=== PATIENT | female | born 1970 | race Caucasian/White ===

== ENCOUNTER → 2019-06-04 | Outpatient (CLI) | payer MEDICARE ==
--- NOTE | 2019-06-05 14:33 | MM ---
Reason for exam: screening (asymptomatic). Last mammogram was performed 1 year and 11 months ago. History: Family history of breast cancer in paternal grandmother at age 60. Physical Findings: A clinical breast exam by your physician is recommended on an annual basis and results should be correlated with mammographic findings. MG 3D Screening Mammo W/Cad Bilateral CC and MLO view(s) were taken. Prior study comparison: July 05, 2017, bilateral MG 3d screening mammo w/cad. March 20, 2016, bilateral MG screening mammo w CAD. There are similar benign appearing round oval circumscribed masses. No suspicious abnormality. No significant changes when compared with prior studies. ASSESSMENT: Benign, BI-RAD 2 RECOMMENDATION: Routine screening mammogram of both breasts in 1 year.
== END | disposition home or self-care (01) ==
LOC: RADMAMWWP 10:27
PROVIDERS: ATTEND Internal Medicine
DX: Z12.31 Encounter for screening mammogram for malignant neoplasm of breast (principal)
CPT/HCPCS: 77063; 77067

== ENCOUNTER 2019-07-10 19:15 | Emergency (ER) | payer MEDICARE ==
--- NOTE | 2019-07-10 19:50 | ED ---
Extremity Problem HPI - General Chief complaint: Extremity Problem,Nontraumatic Stated complaint: Swelling in leg Time Seen by Provider: 07/10/19 19:29 Source: patient Mode of arrival: ambulatory Limitations: no limitations - History of Present Illness Initial comments: Patient is a 48-year-old female with history of DVT and CVAs presenting to the emergency department with a chief complaint of right leg swelling. Patient reports she woke up yesterday and noticed right lower extremity edema. She reports tightness whenever the leg is flexed but otherwise denies any pain. She reports some discomfort when walking. Patient denies erythema, discharge or other skin discoloration. She denies any trauma to the region. Patient denies hemoptysis, shortness of breath, chest pain, nausea, vomiting, prolonged periods for inactivity, exogenous steroid use, current chemotherapy treatment. Patient does have a history of DVT and states that she has an "mesh" in the right lower extremities. - Related Data Allergies Allergy/AdvReac Type Severity Reaction Status Date / Time warfarin [From Coumadin] Allergy Hallucinati Verified 07/10/19 19:27 ons Review of Systems ROS Statement: Those systems with pertinent positive or pertinent negative responses have been documented in the HPI. ROS Other: All systems not noted in ROS Statement are negative. Past Medical History Past Medical History: CVA/TIA History of Any Multi-Drug Resistant Organisms: None Reported Additional Past Surgical History / Comment(s): Patient states mesh was put into her right leg. Past Psychological History: No Psychological Hx Reported Smoking Status: Current every day smoker Past Alcohol Use History: Rare Past Drug Use History: None Reported General Exam Limitations: no limitations General appearance: alert, in no apparent distress Head exam: Present: atraumatic, normocephalic Eye exam: Present: normal appearance Pupils: Present: normal accommodation ENT exam: Present: normal exam, mucous membranes moist Neck exam: Present: normal inspection, full ROM Respiratory exam: Present: normal lung sounds bilaterally Cardiovascular Exam: Present: regular rate, normal rhythm, normal heart sounds Extremities exam: Present: normal inspection (Right lower extremity nonpitting edema), full ROM, normal capillary refill, other (+2 dorsalis pedis and posterior tibialis bilaterally. Patient neurovascularly intact the right lower extremity). Absent: tenderness, calf tenderness (Negative Homans bilaterally) Back exam: Present: normal inspection, full ROM Neurological exam: Present: alert, oriented X3, normal gait Psychiatric exam: Present: normal affect, normal mood Skin exam: Present: warm, dry, intact, normal color Course Vital Signs 07/10/19 07/10/19 19:23 21:48 Temperature 98.3 F 98.2 F Pulse Rate 94 91 Respiratory 20 18 Rate Blood Pressure 125/79 130/82 O2 Sat by Pulse 100 98 Oximetry Medical Decision Making - Medical Decision Making Patient is a 48-year-old female with history of DVT and CVA is presenting to emergency Department with chief complaint of right leg swelling. Exam shows right lower extremity nonpitting edema with full range of motion and only tightness with full flexion. Patient of neurovascularly intact. +2 dorsalis pedis and posterior tibialis bilaterally. Right lower extremity ultrasound is indicative of a superficial venous thrombus of the greater saphenous vein. Patient advised to apply warm compress. Considering patient has SVT, d-dimer most likely elevated and of no use. Patient was to follow-up with primary care. Strict return parameters were thoroughly discussed with patient was understanding and agreeable. Case discussed with physician. Disposition Clinical Impression: Acute superficial venous thrombosis of right lower extremity Disposition: HOME SELF-CARE Condition: Stable Instructions (If sedation given, give patient instructions): Superficial Thrombophlebitis (ED) Additional Instructions: Apply warm compress. Please follow with primary care. Please return to em ergency department if symptoms worsen. Is patient prescribed a controlled substance at d/c from ED?: No Referrals: Mitch Giang MD [Primary Care Provider] - 1-2 days Time of Disposition: 21:39
--- NOTE | 2019-07-10 21:06 | US ---
EXAMINATION TYPE: US venous doppler duplex LE RT DATE OF EXAM: 07/10/2019 8:34 PM COMPARISON: NONE CLINICAL HISTORY: swelling, hx of dvt. SIDE PERFORMED: Right TECHNIQUE: The lower extremity deep venous system is examined utilizing real time linear array sonog courtney with graded compression, doppler sonography and color-flow sonography. VESSELS IMAGED: External Iliac Vein (EIV) Common Femoral Vein Deep Femoral Vein Greater Saphenous Vein * Femoral Vein Popliteal Vein Small Saphenous Vein * Proximal Calf Veins (* superficial vessels) Right Leg: Negative for DVT At the GSV/CFV junction there is clot in the GSV. IMPRESSION: No evidence of deep venous thrombosis in the right leg. There is however some superficial vein thrombosis in the long saphenous vein.
[2019-07-10 21:49] VITALS: BP 130/82; PULSE 91; RESP 18; TEMP 98.2
== END 2019-07-10 21:48 | disposition home or self-care (01) ==
LOC: EC 19:15
DX: I82.811 Embolism and thrombosis of superficial veins of right lower extremity (principal); I47.1 Supraventricular tachycardia; F17.200 Nicotine dependence, unspecified, uncomplicated; Z88.8 Allergy status to other drugs, medicaments and biological substances; Z92.21 Personal history of antineoplastic chemotherapy; Z86.718 Personal history of other venous thrombosis and embolism; Z95.828 Presence of other vascular implants and grafts
CPT/HCPCS: 99283

== ENCOUNTER → 2021-06-28 | Outpatient (CLI) | payer MEDICARE, OTHER ==
--- NOTE | 2021-07-03 11:35 | MM ---
Reason for exam: screening (asymptomatic). Last mammogram was performed 2 years and 1 month ago. History: Family history of breast cancer in paternal grandmother at age 60. Physical Findings: A clinical breast exam by your physician is recommended on an annual basis and results should be correlated with mammographic findings. MG 3D Screening Mammo W/Cad Bilateral CC and MLO view(s) were taken. Prior study comparison: June 04, 2019, bilateral MG 3d screening mammo w/cad. July 05, 2017, bilateral MG 3d screening mammo w/cad. There are scattered fibroglandular densities. There is chronic nodularity in the right breast. There is no discrete abnormality. ASSESSMENT: Benign, BI-RAD 2 RECOMMENDATION: Routine screening mammogram of both breasts in 1 year.
== END | disposition home or self-care (01) ==
LOC: RADMAMWWP 14:08
PROVIDERS: ATTEND Internal Medicine
DX: Z12.31 Encounter for screening mammogram for malignant neoplasm of breast (principal)
CPT/HCPCS: 77063; 77067

== ENCOUNTER → 2022-05-15 | Outpatient (CLI) | payer MEDICARE, OTHER ==
--- NOTE | 2022-05-16 09:03 | XR ---
EXAMINATION TYPE: XR knee complete LT DATE OF EXAM: 05/15/2022 COMPARISON: None HISTORY: 51-year-old female M2 5.562, left knee pain TECHNIQUE: AP, oblique, and lateral views FINDINGS: There may be a trace knee joint effusion which is nonspecific. Extensor mechanism appears intact. No acute fracture, subluxation, or dislocation is seen. IMPRESSION: No acute osseous abnormality seen. There may be a trace knee joint effusion.
== END | disposition home or self-care (01) ==
LOC: RADXRMAIN 15:12
PROVIDERS: ATTEND Internal Medicine
DX: M25.562 Pain in left knee (principal)

== ENCOUNTER → 2022-08-28 | Outpatient (CLI) | payer MEDICARE, OTHER ==
--- NOTE | 2022-08-29 19:13 | MM ---
Reason for Exam: Screening (asymptomatic). Last mammogram was performed 1 year(s) and 2 month(s) ago. Patient History: Menarche at age 11. First Full-Term at age 19. Postmenopausal. Paternal grandmother had breast cancer, age 60. Risk Values: Dorothea 5 year model risk: 0.9%. NCI Lifetime model risk: 7.8%. Prior Study Comparison: 07/05/2017 Bilateral Screening Mammogram, [facility]. 06/04/2019 Bilateral Screening Mammogram, [facility]. 06/28/2021 Bilateral Screening Mammogram, [facility]. Tissue Density: There are scattered fibroglandular densities. Findings: Analyzed By CAD. Pattern is symmetrical and stable. No significant interval change is evident. No suspicious groups of microcalcifications, spiculated or lobular masses, architectural distortion or other secondary signs of malignancy are mammographically apparent. Overall Assessment: Negative, BI-RAD 1 Management: Screening Mammogram of both breasts in 1 year. A negative mammogram report should not preclude additional follow up of suspicious palpable abnormalities. Patient should continue monthly self breast exam. A clinical breast exam by your physician is recommended on an annual basis and results should be correlated with mammographic findings. Electronically signed and approved by: Abdelrahman Garcia D.O. Radiologis
== END | disposition home or self-care (01) ==
LOC: RADMAMWWP 14:36
PROVIDERS: ATTEND Internal Medicine
DX: Z12.31 Encounter for screening mammogram for malignant neoplasm of breast (principal); Z78.0 Asymptomatic menopausal state; Z80.3 Family history of malignant neoplasm of breast
CPT/HCPCS: 77063; 77067

== ENCOUNTER → 2023-10-31 | Day surgery (SDC) | payer MEDICARE, OTHER ==
[2023-10-28 10:56] VITALS: BMI 33.6
--- NOTE | 2023-10-30 23:41 | HP ---
HISTORY AND PHYSICAL DATE OF SURGERY: 10/31/2023. HISTORY OF PRESENT ILLNESS: Shabnam Coelho is a 52-year-old patient, seen with progressive left shoulder pain. We discussed options. She elected to proceed with left shoulder arthroscopy. Consent was obtained. PAST MEDICAL HISTORY: Hypertension. SURGICAL HISTORY: section. DAILY MEDICATIONS: 1. Metoprolol. 2. Tylenol. ALLERGIES: None. SOCIAL HISTORY: She smokes cigarettes. PHYSICAL EVALUATION OF THE LEFT SHOULDER: Flexion is 70 degrees. Abduction is 30 degrees. External rotation is 40 degrees with significant weakness. She has tenderness along the anterolateral acromion and rotator cuff insertion area. Impingement is positive at 60 degrees. Cross-body adduction sign is positive. Drop-arm sign is positive. Distal neurovascular exam is intact. IMAGING STUDIES: Radiographs of the left shoulder revealed a healed tuberosity fracture. Left shoulder MRI revealed a rotator cuff tendon tear along with labral tear. IMPRESSION: 1. Left shoulder impingement with rotator cuff tear. 2. Left shoulder labral tear. 3. Hypertension. PLAN: Left shoulder arthroscopy with subacromial decompression, arthroscopic rotator cuff repair, and debridement of labral tear. MMODL / IJN: [id number] /
[~2023-10-31] MED LIST: DEXAMETHASONE SOD PHOSPHATE 4 MG/ML 1 ML VIAL ONE; GLYCOPYRROLATE 0.2 MG/ML 2 ML VIAL ONE; HYDROmorphone 0.5 MG/0.5 ML SYRINGE IVP PRN; KETOROLAC 15 MG/ML 1 ML VIAL ONE; LIDOCAINE 1% INJ 10MG/ML (20 ML MDV) ONE; NEOSTIGMINE 1 MG/ML 10 ML VIAL ONE; PROPOFOL 10 MG/ML 20 ML VIAL IV ONE; ROCURONIUM 10 MG/ML (5 ML VIAL) IV ONE; ROPIVACAINE 5 MG/ML 30 ML VIAL ONE; SUCCINYLCHOLINE CHLORIDE 200 MG/10 ML VIAL IV ONE; fentaNYL (PF) 50 MCG/ML 2 ML AMP ONE
[2023-10-31 10:34] VITALS: RESP 16
[2023-10-31] MEDS: ONDANSETRON 4 MG/2 ML VIAL IVP ONE (10:46)
[2023-10-31] MEDS: DEXAMETHASONE SOD PHOSPHATE 4 MG/ML 1 ML VIAL IV ONE (10:46)
[2023-10-31] MEDS: LACTATED RINGERS 1,000 ML IV SCH (10:46)
[2023-10-31] MEDS: MIDAZOLAM 2 MG/2 ML VIAL IVP ONE (10:50)
--- NOTE | 2023-10-31 12:28 | P.OP ---
Date of Procedure: 10/31/23 Preoperative Diagnosis: Left shoulder impingement Postoperative Diagnosis: 1. Left shoulder rotator cuff tear 2. Left shoulder bicipital tendinitis 3. Left shoulder impingement 4. Left shoulder acromioclavicular joint osteoarthritis 5. Left shoulder superficial anterior labral tear Procedure(s) Performed: 1. Left shoulder arthroscopic rotator cuff repair 2. Left shoulder arthroscopic biceps tenodesis 3. Left shoulder arthroscopic subacromial decompression 4. Left shoulder arthroscopic Fredy procedure 5. Left shoulder arthroscopic debridement labral tear Implants: 2Arthrex 4.75 swivel lock anchors Anesthesia: GETA, regional (Interscalene block) Surgeon: Caio Schwartz Seed Expert #1: Kirt Stark Estimated Blood Loss (ml): 11 Pathology: none sent Condition: stable Disposition: PACU Indications for Procedure: 52-year-old patient seen with progressive left shoulder pain. After having treatment options discussed, she elected to proceed with arthroscopy. Operative Findings: See description of procedure Description of Procedure: Patient underwent an interscalene block by department of anesthesia. The patient was then taken to the operative suite. The patient underwent a general anesthetic by the department of anesthesia. The patient was placed into a lateral position and secured. There was appropriate padding of the bony prominence. Left shoulder was then prepped and draped in normal sterile orthopedic fashion. We placed the extremity in 10 pounds of longitudinal traction. A posterior incision was now made for a posterior working portal site. The trocar and cannula were inserted into the glenohumeral joint. Arthroscopy was initiated. Spinal needle was now inserted anteriorly, to ascertain the anterior working portal site. An incision was now made in that area, a trocar was inserted followed by a probe. There was hyperemia of the long head biceps tendon consistent with chronic bicipital tendinitis. There was superficial tearing of the anterior labrum. There were grade I chondromalacia changes of the glenoid fossa. I noted a small loose body and introduced a motorized shaver and debrided that out. I now debrided out the superficial labral tear. I decided to proceed with arthroscopic biceps tenodesis. I introduced the cannula through the anterior portal site. I passed a loop and tack type stitch to the biceps tendon. I now released the biceps tendon from the superior labrum. With the assistance of Blu BARRIOS I punched a hole at the interval for insertion of an anchor. The suture limb was passed through the eyelet of an Arthrex 4.75 swivel lock anchor. I placed the eyelet into the preplanned hole, held in position while Blu BARRIOS tensioned the suture and deployed the anchor with good fixation noted. The residual suture limb was clipped. We had excellent stable appearing biceps tenodesis. Instruments were now removed from the glenohumeral joint. Utilizing the posterior working portal site, the trocar and cannula were inserted into the subacromial space. Arthroscopy initiated. I made an incision 2 fingerbreadths lateral to the acromion. I introduced my trocar followed by my ArthroCare ablator. I now began ablating thick subacromial bursal tissue, which exposed the undersurface of the anterior acromion. There was diminished subacromial space. There was a very prominent anterior acromion. A motorized bur was introduced and a subacromial decompression was performed. I also excised some osteophytes off the inferior aspect of the distal clavicle. The AC joint was visualized and noted to be fairly arthritic. The motorized bur was introduced in the anterior portal site and a Fredy procedure was performed without difficulty, decompressing the AC joint nicely. I turned my attention to the rotator cuff. There was considerable partial tearing of the superior aspect of the supraspinatus. I introduced a motorized shaver and debrided that area getting down to stable tendon tissue. I probed the area and noted a full- thickness perforation on the distal supraspinatus. I debrided that area getting down to stable tendon tissue. The defect/tear measured a little over a c entimeter and was freely mobile over the footprint. I abraded the footprint with a motorized bur. With the assistance of Blu BARRIOS I passed 2 Ubretid mattress sutures through good bites of rotator cuff tendon. I punched a hole in the footprint area for insertion of an anchor. All 4 limbs of suture were passed through the eyelet of an Arthrex 4.75 swivel lock anchor. I placed the eyelet into our preplanned hole. I held in position while Blu BARRIOS tensioned all 4 limbs of suture and deployed the anchor with good fixation noted. All residual suture limbs were now clipped. We had good compression of the tendon along the entire footprint. Instruments now removed from the portal sites. All portal sites were approximated with nylon suture. Sterile dressings were applied followed by a shoulder sling. Kirt BARRIOS assisted in this complex case. The patient was awakened, transferred to a bed, and taken to recovery in stable condition.
[2023-10-31 13:01] VITALS: TEMP 97
[2023-10-31 14:14] VITALS: BP 104/65; PULSE 73
--- NOTE | 2023-10-31 19:31 | P.ANPRN ---
Procedure Note - Anesthesia - Nerve Block Performed Left Interscalene Single Time Out Performed: Yes Date of Procedure: 10/31/23 Procedure Start Time: 10:49 Procedure Stop Time: 10:53 Location of Patient: PreOp Indication: Acute Post-Operative Pain, Requested by Surgeon Sedation Type: Sedate with meaningful contact maintained Preparation: Sterile Prep Position: Supine Needle Types: Pajunk Needle Gauge: 21 Ultrasound used to visualize needle placement: Yes Ultrasound used to observe medication spread: Yes Blood Aspirated: No Pain Paresthesia on Injection Noted: No Resistance on Injection: Normal Image Stored and Saved: Yes Events: Uneventful and Well Tolerated (Ropivacaine 0.5% 20 cc plus dexamethasone 4 mg)
== END | disposition home or self-care (01) ==
LOC: OR 09:52
PROVIDERS: ATTEND Orthopaedic Surgery
DX: S43.492A Other sprain of left shoulder joint, initial encounter (principal); M75.22 Bicipital tendinitis, left shoulder; M75.102 Unspecified rotator cuff tear or rupture of left shoulder, not specified as traumatic; M19.012 Primary osteoarthritis, left shoulder; M75.42 Impingement syndrome of left shoulder; I10 Essential (primary) hypertension; E78.5 Hyperlipidemia, unspecified; E03.9 Hypothyroidism, unspecified; F17.210 Nicotine dependence, cigarettes, uncomplicated; Z86.73 Personal history of transient ischemic attack (TIA), and cerebral infarction without residual deficits; Z86.718 Personal history of other venous thrombosis and embolism; Z79.899 Other long term (current) drug therapy; Z79.01 Long term (current) use of anticoagulants; Z79.890 Hormone replacement therapy; X58.XXXA Exposure to other specified factors, initial encounter
CPT/HCPCS: 64415; 29824; 29826; 29827; 29828; C1713 ×3; J2250; J0330; J1100; J2710; J0690; J2405; J2001; J3010; J2795; J1885; J2704

== ENCOUNTER → 2024-09-29 | Outpatient (CLI) | payer MEDICARE, OTHER ==
--- NOTE | 2024-09-29 14:51 | MM ---
Reason for Exam: Screening (asymptomatic). Last mammogram was performed 2 year(s) and 1 month(s) ago. Patient History: Menarche at age 11. First Full-Term at age 19. Postmenopausal. Paternal grandmother had breast cancer, age 60. Risk Values: Dorothea 5 year model risk: 1.0%. NCI Lifetime model risk: 7.5%. Prior Study Comparison: 06/04/2019 Bilateral Screening Mammogram, [facility]. 06/28/2021 Bilateral Screening Mammogram, [facility]. 08/28/2022 Bilateral MG 3D screening mammo w/cad, [facility]. Tissue Density: The breasts are almost entirely fatty. Findings: Analyzed By CAD. Right breast: There is no suspicious group of microcalcifications or new suspicious mass. Left breast: There is no suspicious group of microcalcifications or new suspicious mass. Overall Assessment: Negative, BI-RAD 1 Management: Screening Mammogram of both breasts in [address] [facility] will attempt to contact patient to return for supplemental views and ultrasound if indicated. Patient should continue monthly self-breast exams. A clinical breast exam by your physician is recommended on an annual basis. This exam should not preclude additional follow-up of suspicious palpable abnormalities. Note on Dorothea scores and lifetime risk: 1. A Dorothea score greater than 3% is considered moderate risk. If this is the case, consider specialist referral to assess eligibility for a risk reducing agent. 2. If overall lifetime risk for the development of breast cancer is 20% or higher, the patient may qualify for future screening with alternating mammogram and breast MRI. [facility], , 09/29/2024 2:47 PM. Electronically signed and approved by: Alexander Restrepo DO
== END | disposition home or self-care (01) ==
LOC: RADMAMWWP 14:04
PROVIDERS: ATTEND Internal Medicine
DX: Z12.31 Encounter for screening mammogram for malignant neoplasm of breast (principal); R92.313 Mammographic fatty tissue density, bilateral breasts; Z78.0 Asymptomatic menopausal state; Z80.3 Family history of malignant neoplasm of breast
CPT/HCPCS: 77063; 77067